=== PATIENT | male | born 1945 | race Caucasian/White ===

== ENCOUNTER 2021-06-06 10:26 | Outpatient (CLI) | payer MEDICARE | END 2021-06-06 10:27 | disposition home or self-care (01) | LOC: CSHULT 10:26 | PROVIDERS: ATTEND Urology | DX: N40.1 Benign prostatic hyperplasia with lower urinary tract symptoms (principal); N28.1 Cyst of kidney, acquired; N28.9 Disorder of kidney and ureter, unspecified | CPT/HCPCS: 76770 ==